=== PATIENT | female | born 1985 | race Two or more races ===

== ENCOUNTER → 2025-06-04 | Emergency (ER) | payer OTHER ==
[~2025-06-04] VITALS: Ht 152.4 cm; Wt 70.3 kg
== END | disposition left against medical advice (07) ==
LOC: ER 16:38
DX: Z53.21 Procedure and treatment not carried out due to patient leaving prior to being seen by health care provider (principal)

== ENCOUNTER 2025-06-05 00:55 | Emergency (ER) | payer OTHER ==
[~2025-06-05] VITALS: Ht 152.4 cm; Wt 68.0 kg
== END 2025-06-05 10:33 | disposition home or self-care (01) ==
LOC: ER 00:55
DX: Z01.419 Encounter for gynecological examination (general) (routine) without abnormal findings (principal)